=== PATIENT | female | born 1945 | race Caucasian/White ===

== ENCOUNTER 2018-05-24 16:19 | Emergency (ER) | payer OTHER ==
--- NOTE | 2018-05-24 16:50 | RAD REPORT ---
EXAM DESCRIPTION: CT - Head C Spine Mpr Wo Con - 05/24/2018 4:38 pm CLINICAL HISTORY: Head and neck injury status post fall. Head and neck pain COMPARISON: None. TECHNIQUE: Computed axial tomography of the head and cervical spine was obtained. Sagittal and coronal reconstruction was performed. All CT scans are performed using dose optimization technique as appropriate and may include automated exposure control or mA/KV adjustment according to patient size. FINDINGS: An intracranial bleed is not seen. The ventricles are normal in caliber. An extra-axial fl uid collection is not noted.Fluid within the visualized sinuses and mastoids is not seen A cervical fracture is not visualized. No dislocation is noted. IMPRESSION: No acute intracranial abnormality is seen. A cervical fracture is not visualized. If the patient continues to have symptoms to suggest intracra nial /spinal cord pathology then MRI would be recommended
--- NOTE | 2018-05-24 16:51 | RAD REPORT ---
EXAM DESCRIPTION: RAD - Forearm Left - 05/24/2018 4:42 pm CLINICAL HISTORY: Left forearm pain status post injury FINDINGS: No fracture is seen
--- NOTE | 2018-05-24 17:06 | EDPHYS ---
Physician Documentation [facility] Name: Teresa Briceño Age: 72 yrs Sex: Female : 1945 Arrival Date: 05/24/2018 Time: 16:21 Bed 25 Private MD: Out, [facility] ED Physician Christopher Kiser HPI: 05/24 16:42 This 72 yrs old Female presents to ER via Ambulatory with complaints of Head jr8 Injury-Adult. 16:42 The patient or guardian reports pain, tenderness. The complaints affect the left side jr8 of the back of head and right side of the back of head. Context of injury: The problem was sustained outdoors. Onset: The symptoms/episode began/occurred acutely, today. Associated signs and symptoms: Loss of consciousness: This patient did not experience any loss of consciousness. Pertinent positives: dazed, headache, nausea, retrograde amnesia . Severity of symptoms: At their worst the symptoms were moderate, in the emergency department the symptoms have improved. The patient has not experienced similar symptoms in the past. The patient has not recently seen a physician. Patient was on off shore boat and hit head. Family stated that she had been confused and was asking repetitive questions for the past couple of hours. Stated that she has improved since then but continues to have headache and blurred vision . Historical: - Allergies: 16:27 Codeine; ss 16:27 Sulfa (Sulfonamide Antibiotics); ss 16:27 Randall; ss - Immunization history:: Adult Immunizations up to date. - Social history:: Smoking status: Patient/guardian denies using tobacco, Patient/guardian denies using alcohol. - Ebola Screening: : Patient negative for fever greater than or equal to 101.5 degrees Fahrenheit, and additional compatible Ebola Virus Disease symptoms Patient denies exposure to infectious person Patient denies travel to an Ebola-affected area in the 21 days before illness onset. ROS: 16:42 Eyes: Negative for injury, pain, redness, and discharge, ENT: Negative for injury, jr8 pain, and discharge, Neck: Negative for injury, pain, and swelling, Cardiovascular: Negative for chest pain, palpitations, and edema, Respiratory: Negative for shortness of breath, cough, wheezing, and pleuritic chest pain, Abdomen/GI: Negative for abdominal pain, nausea, vomiting, diarrhea, and constipation, Back: Negative for injury and pain, Skin: Negative for injury, rash, and discoloration. 16:42 MS/extremity: Positive for pain, tenderness, of the left arm. 16:42 Neuro: Positive for headache, visual changes, Negative for altered mental status, dizziness, gait disturbance, hearing loss, loss of consciousness, numbness, seizure activity, speech changes, syncope, near syncope, tingling, tinnitus, tremor, weakness. Exam: 16:42 Head/Face: Normocephalic, atraumatic. Eyes: Pupils equal round and reactive to light, jr8 extra-ocular motions intact. Lids and lashes normal. Conjunctiva and sclera are non-icteric and not injected. Cornea within normal limits. Periorbital areas with no swelling, redness, or edema. ENT: Nares patent. No nasal discharge, no septal abnormalities noted. Tympanic membranes are normal and external auditory canals are clear. Oropharynx with no redness, swelling, or masses, exudates, or evidence of obstruction, uvula midline. Mucous membranes moist. Neck: Trachea midline, no thyromegaly or masses palpated, and no cervical lymphadenopathy. Supple, full range of motion without nuchal rigidity, or vertebral point tenderness. No Meningismus. Cardiovascular: Regular rate and rhythm with a normal S1 and S2. No gallops, murmurs, or rubs. Normal PMI, no JVD. No pulse deficits. Respiratory: Lungs have equal breath sounds bilaterally, clear to auscultation and percussion. No rales, rhonchi or wheezes noted. No increased work of breathing, no retractions or nasal flaring. Abdomen/GI: Soft, non-tender, with normal bowel sounds. No distension or tympany. No guarding or rebound. No evidence of tenderness throughout. Back: No spinal tenderness. No costovertebral tenderness. Full range of motion. Skin: Warm, dry with normal turgor. Normal color with no rashes, no lesions, and no evidence of cellulitis. Neuro: Awake and alert, GCS 15, oriented to person, place, time, and situation. Cranial nerves II-XII grossly intact. Motor strength 5/5 in all extremities. Sensory grossly intact. Cerebellar exam normal. Normal gait. 16:42 Musculoskeletal/extremity: Extremities: grossly normal except: noted in the left lateral forearm: ecchymosis, pain, tenderness, ROM: intact in all extremities, Circulation is intact in all extremities. Sensation intact. Vital Signs: 16:27 BP 155 / 82; Pulse 80; Resp 17; Pulse Ox 99% on R/A; Weight 63.5 kg; Height 5 ft. 3 in. ss (160.02 cm); Pain 0/10; 17:01 BP 150 / 80; Pulse 78; Resp 18; Pulse Ox 100% on R/A; hj 16:27 Body Mass Index 24.80 (63.50 kg, 160.02 cm) Francis Coma Score: 16:22 Eye Response: spontaneous(4). Verbal Response: oriented(5). Motor Response: obeys commands(6). Total: 15. 16:42 Eye Response: spontaneous(4). Verbal Response: oriented(5). Motor Response: obeys [facility] commands(6). Total: 15. MDM: 16:26 Patient medically screened. jr8 17:05 Data reviewed: vital signs, nurses notes, radiologic studies, CT scan, plain films. jr8 Data interpreted: Pulse oximetry: on room air is 100 %. Interpretation: normal. Counseling: I had a detailed discussion with the patient and/or guardian regarding: the historical points, exam findings, and any diagnostic results supporting the discharge/admit diagnosis, radiology results, the need for outpatient follow up, a family practitioner, to return to the emergency department if symptoms worsen or persist or if there are any questions or concerns that arise at home. Response to treatment: the patient's symptoms have markedly improved after treatment. ED course: Patient without any memory deficit. Hemodynamically stable. Headache well managed at this point with no vomiting. Close return precautions given. To f/u with PCP within 24 hours. Family will be with patient as well . 05/24 16:27 Order name: CT Head C Spine; Complete Time: 16:53 jr8 05/24 16:27 Order name: XRAY Forearm LEFT; Complete Time: 16:53 jr8 Administered Medications: No medications were administered Disposition: 19:08 Co-signature as Attending Physician, Christopher Kiser MD I agree with the assessment and kdr plan of care. Disposition: 05/24/18 17:06 Discharged to Home. Impression: Concussion. - Condition is Stable. - Discharge Instructions: Concussion, Adult, Head Injury, Adult. - Prescriptions for Zofran 4 mg Oral Tablet - take 1 tablet by ORAL route every 12 hours As needed; 20 tablet. - Medication Reconciliation Form, Thank You Letter, Antibiotic Education, Prescription Opioid Use form. - Follow up: Private Physician; When: Tomorrow; Reason: Recheck today's complaints, Continuance of care, Re-evaluation by your physician. - Problem is new. - Symptoms have improved. Signatures: Dispatcher [employer] EDOK Christopher Kiser MD MD [facility] Eryn Zaragoza RN RN Casey Hanna PA PA jr8 Micah Mcdonald RN RN hj Corrections: (The following items were deleted from the chart) 17:12 17:06 05/24/2018 17:06 Discharged to Home. Impression: Concussion. Condition is Stable. hj Forms are Medication Reconciliation Form, Thank You Letter, Antibiotic Education, Prescription Opioid Use. Follow up: Private Physician; When: Tomorrow; Reason: Recheck today's complaints, Continuance of care, Re-evaluation by your physician. Problem is new. Symptoms have improved. jr8
--- NOTE | 2018-05-24 17:06 | ER ---
Nurse's Notes [facility] Name: Teresa Briceño Age: 72 yrs Sex: Female : 1945 Arrival Date: 05/24/2018 Time: 16:21 Bed 25 Private MD: Out, [facility] Diagnosis: Concussion Presentation: 05/24 16:22 Presenting complaint: Child states: daughter reports that they were offshore fishing [place] when patient fell and hit her head approx 3 h ours ago. No LOC reported. Family states that patient just seemed really confused for the first 45 minutes, and it took them two hours to get inshore. Transition of care: patient was not received from another setting of care. Mechanism of Injury: resulted from a fall, from a standing position. Onset of symptoms was May 24, 2018. Risk Assessment: Do you want to hurt yourself or someone else? Patient reports no desire to harm self or others. Initial Sepsis Screen: Does the patient meet any 2 criteria? No. Patient's initial sepsis screen is negative. Does the patient have a suspected source of infection? No. Patient's initial sepsis screen is negative. Care prior to arrival: None. 16:22 Method Of Arrival: Ambulatory ss 16:22 Acuity: ALBERT 3 ss Triage Assessment: 16:22 General: Appears in no apparent distress. uncomfortable, Behavior is calm, cooperative, hj appropriate for age. Pain: Complains of pain in scalp. EENT: No signs and/or symptoms were reported regarding the EENT system. Neuro: Level of Consciousness is awake, alert, obeys commands, Oriented to person, place, time, situation, Appropriate for age Reports headache. Cardiovascular: Capillary refill < 3 seconds Patient's skin is warm and dry. Respiratory: Airway is patent Respiratory effort is even, unlabored, Respiratory pattern is regular, symmetrical. GI: No signs and/or symptoms were reported involving the gastrointestinal system. : No signs and/or symptoms were reported regarding the genitourinary system. Derm: No signs and/or symptoms reported regarding the dermatologic system. Musculoskeletal: No signs and/or symptoms reported regarding the musculoskeletal system. Historical: - Allergies: 16:27 Codeine; ss 16:27 Sulfa (Sulfonamide Antibiotics); ss 16:27 Antelope; ss - Immunization history:: Adult Immunizations up to date. - Social history:: Smoking status: Patient/guardian denies using tobacco, Patient/guardian denies using alcohol. - Ebola Screening: : Patient negative for fever greater than or equal to 101.5 degrees Fahrenheit, and additional compatible Ebola Virus Disease symptoms Patient denies exposure to infectious person Patient denies travel to an Ebola-affected area in the 21 days before illness onset. Screenin:22 Abuse screen: Denies threats or abuse. Denies injuries from another. Nutritional hj screening: No deficits noted. Tuberculosis screening: No symptoms or risk factors identified. Fall Risk Fall in past 12 months (25 points). Assessment: 16:27 Reassessment: see triage for assessment;. hj 17:01 Reassessment: provider in room for results and POC:. hj Vital Signs: 16:27 BP 155 / 82; Pulse 80; Resp 17; Pulse Ox 99% on R/A; Weight 63.5 kg; Height 5 ft. 3 in. ss (160.02 cm); Pain 0/10; 17:01 BP 150 / 80; Pulse 78; Resp 18; Pulse Ox 100% on R/A; hj 16:27 Body Mass Index 24.80 (63.50 kg, 160.02 cm) Lena Coma Score: 16:22 Eye Response: spontaneous(4). Verbal Response: oriented(5). Motor Response: obeys commands(6). Total: 15. 16:42 Eye Response: spontaneous(4). Verbal Response: oriented(5). Motor Response: obeys [facility] commands(6). Total: 15. ED Course: 16:21 Patient arrived in ED. sb2 16:22 Out, [facility] is Private Physician. sb2 16:26 Triage completed. ss 16:26 Casey Hanna PA is PHCP. jr8 16:26 Christopher Kiser MD is Attending Physician. jr8 16:27 Arm band placed on right wrist. ss 16:38 CT Head C Spine In Process Unspecified. EDMS 16:42 X-ray completed. Patient tolerated procedure well. az 16:43 XRAY Forearm LEFT In Process Unspecified. EDMS 16:45 Micah Mcdonald, JOYCE is Primary Nurse. hj 16:46 Patient has correct armband on for positive identification. Bed in low position. Call hj light in reach. Side rails up X 1. Adult w/ patient. 16:50 Warm blanket given. Pillow given. Pulse ox on. jp3 17:11 No provider procedures requiring assistance completed. Patient did not have IV access hj during this emergency room visit. Administered Medications: No medications were administered Outcome: 17:06 Discharge ordered by . juan 17:12 Discharged to home ambulatory, with family. hj 17:12 Condition: stable 17:12 Discharge instructions given to patient, family, Instructed on discharge instructions, follow up and referral plans. medication usage, Demonstrated understanding of instructions, follow-up care, medications, Prescriptions given X 1. 17:12 Patient left the ED. ytra Signatures: Dispatcher [employer] EDMS Eryn Zaragoza RN RN Casey Hanna PA PA jr8 Micah Mcdonald RN RN Stacey Kumar sb2 Vasquez Beatty jp3 Annita Salazar
== END 2018-05-24 17:12 | disposition home or self-care (01) ==
LOC: ER 16:19
DX: S06.0X0A Concussion without loss of consciousness, initial encounter (principal); W22.8XXA Striking against or struck by other objects, initial encounter; Y93.9 Activity, unspecified; Y92.814 Boat as the place of occurrence of the external cause; Z88.2 Allergy status to sulfonamides; Z88.5 Allergy status to narcotic agent
CPT/HCPCS: 70450; 72125; 99283